=== PATIENT | male | born 1985 | race African-American/Black ===

== ENCOUNTER 2024-11-24 12:31 | Emergency (ER) | payer OTHER, SELFPAY ==
[2024-11-24 12:38] VITALS: BP 153/101
--- NOTE | 2024-11-24 13:58 | ED.GENMED ---
History of Present Illness
General
Chief Complaint: Breathing Problem
Source: patient
Exam Limitations: none
Time Seen by Provider: 11/24/24 13:37
History of Present Illness
History of Present Illness:
39-year-old otherwise healthy male presents complaining of 3 days worth of influenza symptoms. He was tested positive for influenza at the [facility] 3 days ago. He came today as he is having increased chest pain and shortness of breath. He
describes the discomfort as tightness. He feels like he is wheezing at times. He notes a nonproductive cough. He has been on Tamiflu. No other complaints at this time
Phy Exam
Physical Exam
Physical Exam:
General: Well-appearing male no acute respiratory distress
HEENT: Normocephalic atraumatic
Heart: Regular rate and rhythm no murmur
Lungs: Slightly coarse no obvious rales
Abdomen is soft nontender nondistended no guarding or rebound
Extremities: No cyanosis
Skin: Warm, no rash
Course
Orders/Labs/Results
Orders:
Orders
11/24/24 12:43
Electrocardiogram (*1) Urgent
Reason for Study: Chest Pain
EKG- Treatment ONCE
CXR2 [CR Chest - 2 Views ] Urgent
Comment:
Reason For Exam: cough
11/24/24 13:47
Dexamethasone Sod Phosphate [Decadron] 10 mg IV NOW STA
Ipratropium/Albuterol Sulfate [Duoneb] 3 ml INH R NOW STA
Ketorolac [Toradol] 15 mg IV NOW STA
11/24/24 14:11
Complete Blood Count/With Diff Urgent
Comprehensive Metabolic Panel Urgent
Abnormal Lab Results
11/24/24
14:11
Absolute Monos (auto) 0.8 H 10^3/uL
(0.1-0.6)
11/24/24 14:11
11/24/24 14:11
Vital Signs
Initial and Last Documented VS:
Initial Vital Signs
Temp Pulse Resp BP Pulse Ox
100 F 81 16 153/101 98
11/24/24 12:38 11/24/24 12:38 11/24/24 12:38 11/24/24 12:38 11/24/24 12:38
Last Documented Vital Signs
Temp Pulse Resp BP Pulse Ox
100 F 81 16 153/101 98
11/24/24 12:38 11/24/24 12:38 11/24/24 12:38 11/24/24 12:38 11/24/24 12:38
MDM/Problems Addressed
Differential Diagnosis Includes:
Patient with chest tightness and burning in his chest with known influenza. He is not hypoxic nor is he tachypneic but symptomatically feels unwell. Will try nebulizer steroid and some Toradol. X-ray performed through triage is negative for acute
finding.
*Critical Care Note
Total Time (30-74mins, 75-104mins- exclusive of procedures): Not Applicable
Update Note
Update Note:
Patient feeling much better after treatment here. Lungs are clear no respiratory distress. Will send patient home and on inhaler and steroid. Recommended plenty of hydration
ED Attending Note
-
Portions of this chart may have been created with voice recognition software.� Occasional wrong word or��sound alike� substitutions may have occurred due to the inherent limitations of voice recognition software.
Discharge Plan
Departure
Patient Disposition: Home (Routine Discharge)
Date of Disposition: 11/24/24
Time of Disposition: 15:45
Patient with high blood pressure during this ER visit?: No
Discharge Problem:
Influenza A
Instructions: Flu in adults - ED discharge instructions
Prescriptions:
New
albuterol sulfate [Ventolin HFA] 90 mcg/actuation HFA aerosol inhaler
1 inh inhalation Q6H PRN (Reason: shortness of breath or wheezing) Qty: 6.7 0RF
prednisone 20 mg tablet
40 mg PO DAILY 5 Days Qty: 10 0RF
Referrals:
Freddy Conner MD [Family Provider] -
Activity Restrictions/Additional Instructions:
Drink plenty of fluids. Rest. Use inhaler as needed. Use steroid as directed. Return if worse otherwise
Interventions
Interventions:
*Risk Screen - Suicide Last Done: 11/24/24 12:38
*Neglect/Abuse Screening Last Done: 11/24/24 12:38
ED- Fall Risk Assessment Last Done: 11/24/24 14:16
ED- Cardiac Assessment Last Done: 11/24/24 14:16
ED- Pulmonary Assessment Last Done: 11/24/24 14:16
Discharge Date and Time
Print Language: LAO
[2024-11-24] MEDS: TORADOL 15 MG IV (14:10)
[2024-11-24] MEDS: DUONEB 3 ML INH (14:10)
[2024-11-24] MEDS: DECADRON 10 MG IV (14:10)
[2024-11-24 14:25] LABS: % Basophils 0.2 % (0-2); % Eosinophils 1.9 % (0-6); % Immature Granulocytes 0.1 % (0-0.5); % Lymphocytes 22.1 % (20.5-51.1); % Monocytes 8.3 % (1.7-9.3); % Neutrophils 67.4 % (42.2-75.2); Absolute Eosinophils 0.2 10^3/uL (0-0.7); Absolute Lymphocytes 2.1 10^3/uL (1.2-3.4); Absolute Monocytes 0.8 10^3/uL (0.1-0.6); Absolute Neutrophils 6.3 10^3/uL (1.4-6.5); Hematocrit 48.7 % (39.0-52.0); Hemoglobin 16.8 g/dL (13.0-18.0); Mean Corp Hgb Conc. 34.5 g/dL (33.0-37.0); Mean Corpuscular Volume 89.9 fL (80.0-94.0); Mean Platelet Volume 8.4 fL (7.4-10.4); Nucleated Red Blood Cells % 0 % (-); Platelet Count 254 10^3/uL (130-400); Red Blood Cell Count 5.42 10^6/uL (4.70-6.10); Red Cell Dist. Width 12.2 % (11.5-14.5); White Blood Cell Count 9.4 10^3/uL (4.8-10.8)
[2024-11-24 14:51] LABS: ALT (SGPT) 29 U/L (0-50); AST (SGOT) 29 U/L (17-59); Albumin 4.4 g/dl (3.5-5.0); Alkaline Phosphatase 54 U/L (38-126); Blood Urea Nitrogen 15 mg/dl (9-20); Calcium 8.6 mg/dl (8.4-10.2); Carbon Dioxide 27 mmol/L (22-30); Chloride 100 mmol/L (98-107); Glucose 96 mg/dl (70-99); Potassium 4.4 mmol/L (3.5-5.1); Sodium 137 mmol/L (135-145); Total Bilirubin 0.5 mg/dl (0.2-1.3); Total Protein 7.3 g/dl (6.3-8.2); eGFR > 60.00
== END 2024-11-24 16:01 | disposition home or self-care (01) ==
LOC: EMR 12:31
PROVIDERS: Physician Assistant; EMERGENCY PHYSICIAN Emergency Medicine; FAMILY PHYSICIAN Family Medicine
DX: J10.1 Influenza due to other identified influenza virus with other respiratory manifestations (principal)
CPT/HCPCS: 99283; 94640; 96374; 96375; 71046; 80053; 85025; 93005